=== PATIENT | male | born 1995 | race Caucasian/White ===

== ENCOUNTER 2017-02-06 18:18 | Emergency (ER) | payer OTHER ==
[~2017-02-06] VITALS: Ht 167.6 cm; Wt 54.0 kg
[~2017-02-06 18:18] MED LIST: ACTCL PO; CNC36
[2017-02-06 18:21] VITALS: TEMP 37.3; Ht 167.6 cm; Wt 54.0 kg
[2017-02-06] MEDS ORDERED: GELATIN SPONGE 12-7MM ONE (18:56)
[2017-02-06] MEDS ORDERED: GELATIN SPONGE 12-7MM EXT ONE (19:00)
[2017-02-06] MEDS ORDERED: CHLO0.122 PO (19:06)
[2017-02-06] MEDS ORDERED: SERT25TA PO (19:06)
[2017-02-06] MEDS ORDERED: MTR600 PO (19:06)
[2017-02-06 19:16] VITALS: BP 127/82; PULSE 94; O2SAT 96
--- NOTE | 2017-02-06 22:03 | EMERGENCY ROOM VISIT NOTE ---
ED Visit Note First contact with patient: 18:34 Chief Complaint: Mouth bleeding. History of Present Illness: Mr. Miguel is a 22-year-old white male who ambulates into the ED complaining bleeding from the mouth. Patient reports on Saturday, 2 days ago, he had oral surgery performed in [place] for an impacted maxillary tooth that was excised. He reports after that surgery he was feeling fine. Today he put a retainer in which the physician told him the way 2 days, he felt a popping sensation and started having bleeding from his surgical site. He believes he ripped one of his stitches open. This event her approximately 10 minutes before he came into the emergency department. He has attempted to use direct pressure but bleeding continues. He has not had any pain or other symptoms since the onset of bleeding. Review of Systems: As noted above in history of present illness. Past Medical History: As previously noted and anxiety. Current Medications: Zoloft, ibuprofen and chloral hydrate gluconate. Allergies to Medications: Penicillin. Social History: Patient is currently employed; he feels safe in his home environment; he denies tobacco use. Physical Examination: Vital Signs: Date Time Temp Pulse Resp B/P (MAP) Pulse Ox O2 Delivery O2 Flow Rate FiO2 02/06/17 19:16 94 127/82 96 02/06/17 18:21 37.3 104 20 134/75 98 Room Air GENERAL: 22-year-old male in no acute distress, nontoxic-appearing, afebrile and hemodynamically stable. NEUROLOGICAL: Awake, alert and oriented to person, place and time. Answering questions appropriately and following commands. SKIN: Warm, dry and pink. No soft tissue trauma noted. MOUTH: Surgical site was reviewed and is clean dry and intact without signs of infection. In the gingiva between teeth 7 and 8 there is a surgical incision is open approximately 3-4 mm and this is the area that's bleeding. I do not see any sutures that are directly in this area that could've ruptured. There is no tenderness in this area. The surrounding teeth are stable and nontender to palpation. ED Course: Patient is assessed as noted above. Patient's medication list was reviewed. A piece of Gelfoam was placed in the area to help control bleeding. Patient was educated about today's findings and instructed on his treatment plan ; he verbalizes understanding and agreement with this plan. Clinical Impression: Postoperative bleeding from the mouth. Disposition: Patient discharged home in stable condition. Plan: Patient was encouraged to keep the Gelfoam in place for at least the next 6 hours or longer. Patient was encouraged to look at the area after removing the Gelfoam for any bleeding. Patient was encouraged to not use his retainer until followed up with oral surgery. Patient was encouraged to call the oral surgeon tomorrow and inform them of today's ED visit and request follow-up care and treatment. Patient was encouraged return ED for recurrent bleeding, uncontrolled bleeding, fevers or any new/concerning symptoms.
== END 2017-02-06 19:21 | disposition home or self-care (01) ==
LOC: C.EDB 18:20 → C.EDD 19:21
DX: K91.840 Postprocedural hemorrhage of a digestive system organ or structure following a digestive system procedure (principal); F41.9 Anxiety disorder, unspecified; Z79.899 Other long term (current) drug therapy; Z88.0 Allergy status to penicillin

== ENCOUNTER 2017-06-24 21:35 | Emergency (ER) | payer OTHER ==
[~2017-06-24] VITALS: Ht 167.6 cm; Wt 55.4 kg
[~2017-06-24 21:35] MED LIST changes: -ACTCL PO; +CHLO0.122 PO; -CNC36; +MTR600 PO; +SERT25TA PO
[2017-06-24 21:37] VITALS: TEMP 36.4; Ht 167.6 cm; Wt 55.4 kg
[2017-06-24] MEDS ORDERED: LIDOCAINE 1% BUFFERED INJ 5 ML VIAL INFIL ONE (22:00)
[2017-06-24] MEDS ORDERED: IBUPROFEN 600 MG TAB PO STA (23:10)
[2017-06-24 23:22] VITALS: BP 96/78; PULSE 102; O2SAT 96
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
== END 2017-06-24 23:24 | disposition home or self-care (01) ==
LOC: C.EDB 21:36 → C.EDD 23:24
DX: S61.012A Laceration without foreign body of left thumb without damage to nail, initial encounter (principal); W45.8XXA Other foreign body or object entering through skin, initial encounter; Y93.89 Activity, other specified; Y99.8 Other external cause status; Z88.0 Allergy status to penicillin; Z91.018 Allergy to other foods; Z91.09 Other allergy status, other than to drugs and biological substances

== ENCOUNTER 2017-07-03 16:56 | Emergency (ER) | payer OTHER ==
[~2017-07-03] VITALS: Ht 167.6 cm; Wt 54.7 kg
[2017-07-03 16:59] VITALS: BP 112/70; PULSE 80; TEMP 36.8; O2SAT 99; Ht 167.6 cm; Wt 54.7 kg
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
== END 2017-07-03 17:28 | disposition home or self-care (01) ==
LOC: C.EDB 16:57 → C.EDD 17:28
DX: S61.012D Laceration without foreign body of left thumb without damage to nail, subsequent encounter (principal); W45.8XXD Other foreign body or object entering through skin, subsequent encounter; Z48.02 Encounter for removal of sutures